=== PATIENT | male | born 1945 | race Caucasian/White ===

== ENCOUNTER 2020-10-04 09:33 | Emergency (ER) | payer OTHER ==
[2020-10-04] MEDS ORDERED: Sodium Chloride 0.9% 10 ML Syringe FLUSH PRN (10:26)
--- NOTE | 2020-10-04 11:22 | EDM.PDOC ---
ED HPI GENERAL MEDICAL PROBLEM - General Chief Complaint: Cardiovascular Problem Stated Complaint: SENT BY [place] HIGH POTASSIUM LEVEL Time Seen by Provider: 10/04/20 10:55 Source of Information: Reports: Patient History Limitations: Reports: No Limitations - History of Present Illness INITIAL COMMENTS - FREE TEXT/NARRATIVE: 75-year-old male presents the emergency department today. Patient had labs drawn yesterday for his oncologist, . [facility] and stated that his [facility] level was high and that he needed to go to the ER immediately. Patient denies any symptoms of hyperkalemia. He denies any chest pain, shortness of breath, palpitations. Denies any recent fever, chills, nausea, vomiting or diarrhea. He denies any cough or sore throat. He denies having any history of hyperkalemia in the past. He states he does have prostate cancer for which he has been taking abiraterone acetate 1000 mg at bedtime for the past 2 years. He states he initially started seeing Dr. Barrera for the prostate cancer however Dr. Barrera notified him that the cancer was too far advanced and he would not be able to have surgery. He was then sent to be seen by Dr. Shukla. Patient is a diabetic for which he takes glipizide and Metformin and also carries a history of hypertension. - Related Data Allergies Allergy/AdvReac Type Severity Reaction Status Date / Time No Known Allergies Allergy Verified 10/04/20 10:52 Home Meds: Home Meds Lisinopril 40 mg PO DAILY 02/12/18 [History] Metoprolol Tartrate 50 mg PO BID 02/12/18 [History] atorvaSTATin Calcium [Atorvastatin Calcium] 40 mg PO BEDTIME 02/12/18 [History] Abiraterone Acetate 1,000 mg PO BEDTIME 10/04/20 [History] Alogliptin Benzoate [Alogliptin] 25 mg PO BEDTIME 10/04/20 [History] Empagliflozin [Jardiance] 25 mg PO DAILY 10/04/20 [History] Methylcellulose [Citrucel] 2,000 mg PO DAILY 10/04/20 [History] Pioglitazone HCl [Actos] 30 mg PO DAILY 10/04/20 [History] Tamsulosin [Flomax] 0.4 mg PO DAILY 10/04/20 [History] amLODIPine Besylate [Norvasc] 5 mg PO DAILY #20 tablet 10/04/20 [Rx] glipiZIDE [Glucotrol] 20 mg PO BID 10/04/20 [History] metFORMIN [Glucophage] 1,000 mg PO DAILY 10/04/20 [History] predniSONE [Prednisone] 2.5 mg PO BID 10/04/20 [History] Past Medical History HEENT History: Reports: Impaired Vision Other HEENT History: wears corrective lenses Cardiovascular History: Reports: High Cholesterol, Hypertension Genitourinary History: Reports: Chronic Renal Insuffiency, Prostate Disorder, Other (See Below) Other Genitourinary History: indwelling catheter Musculoskeletal History: Reports: Back Pain, Chronic, Osteoarthritis Endocrine/Metabolic History: Reports: Diabetes, Type II Social & Family History - Caffeine Use Caffeine Use: Reports: Coffee, Soda, Tea - Living Situation & Occupation Living situation: Reports: Occupation: Employed ED ROS GENERAL - Review of Systems Review Of Systems: Comprehensive ROS is negative, except as noted in HPI. ED EXAM, GENERAL - Physical Exam Exam: See Below Exam Limited By: No Limitations General Appearance: Alert, WD/WN, No Apparent Distress Ears: Normal External Exam, Hearing Grossly Normal Nose: Normal Inspection Throat/Mouth: Normal Inspection, Normal Lips, Normal Voice, No Airway Compromise Head: Atraumatic Neck: Normal Inspection, Supple Respiratory/Chest: No Respiratory Distress, Lungs Clear, Normal Breath Sounds, No Accessory Muscle Use, Chest Non-Tender Cardiovascular: Normal Peripheral Pulses, Regular Rate, Rhythm, No Murmur. No: No Edema (1+ edema to bilateral lower extremities) Peripheral Pulses: 2+: Radial (L), Radial (R) GI/Abdominal: Normal Bowel Sounds, Soft, Non-Tender, No Distention (Male) Exam: Deferred Rectal (Males) Exam: Deferred Back Exam: Normal Inspection Extremities: Normal Inspection, Normal Range of Motion, Non-Tender, Normal Capillary Refill, Pedal Edema (1+ pedal edema to bilateral lower extremities) Neurological: Alert, Oriented, Normal Cognition Psychiatric: Normal Affect, Normal Mood Skin Exam: Warm, Dry, Intact, Normal Color, No Rash Lymphatic: No Adenopathy #1 Interpretation EKG Date: 10/04/20 Time: 10:45 Rhythm: NSR Rate (Beats/Min): 55 [place]: Normal P-Wave: Present QRS: Other (and LBBB) ST-T: Normal QT: Normal EKG Interpretation Comments: Per Dr. Pratt interpretation: Sinus rhythm at 55 bpm; LAD -53 degrees; RBBB B and afeb pattern; left atrial hypertrophy; T wave inversion III & AVF Course - Vital Signs Text/Narrative:: Again patient sent from the [place] with hyperkalemia from lab work that was drawn yesterday. Patient states he has been completely asymptomatic and has not had a history of hyperkalemia in the past. I have ordered labs to include a CBC, CMP, CRP and a magnesium level as well as a troponin. Also ordered an EKG and a portable view of the chest. Last Recorded V/S: Last Vital Signs Temp 97.2 F 10/04/20 10:22 Pulse 60 10/04/20 10:22 Resp 19 10/04/20 10:22 BP 155/67 H 10/04/20 10:22 Pulse Ox 100 10/04/20 10:22 - Orders/Labs/Meds Orders: Active Orders 24 hr Category Date Time Status EKG Documentation Completion [RC] STAT Care 10/04/20 10:25 Active Sodium Chloride 0.9% [Normal Saline] 500 ml Med 10/04/20 11:43 Active IV .BOLUS Sodium Chloride 0.9% [Saline Flush] Med 10/04/20 10:26 Active 10 ml FLUSH ASDIRECTED PRN Saline Lock Insert [OM.PC] Routine Oth 10/04/20 10:26 Ordered Medication Orders Sodium Chloride (Normal Saline) 500 mls @ 500 mls/hr IV .BOLUS ONE Stop: 10/04/20 12:42 Last Admin: 10/04/20 12:28 Dose: 500 mls/hr Documented by: BEVERLY Sodium Chloride (Sodium Chloride 0.9% 10 Ml Syringe) 10 ml FLUSH ASDIRECTED PRN PRN Reason: Keep Vein Open Last Admin: 10/04/20 10:25 Dose: 10 ml Documented by: BEVERLY Labs: Laboratory Tests 10/04/20 10/04/20 10/04/20 Range/Units 10:25 10:25 10:25 WBC 6.84 (4.23-9.07) K/mm3 RBC 3.61 L (4.63-6.08) M/mm3 Hgb 11.7 L (13.7-17.5) gm/dl Hct 37.8 L (40.1-51.0) % MCV 104.7 H D (79.0-92.2) fl MCH 32.4 H (25.7-32.2) pg MCHC 31.0 L (32.2-35.5) g/dl RDW Std Deviation 56.2 H (35.1-43.9) fL Plt Count 104 L (163-337) K/mm3 MPV 13.5 H (9.4-12.3) fl Neutrophils % (Manual) 64 H (40-60) % Band Neutrophils % 5 (0-10) % Lymphocytes % (Manual) 11 L (20-40) % Atypical Lymphs % 7 % Monocytes % (Manual) 11 H (2-10) % Eosinophils % (Manual) 2 (0.8-7.0) % Basophils % (Manual) 0 L (0.2-1.2) Platelet Estimate Decreased Plt Morphology Comment Normal Hypochromasia 1+ slight Anisocytosis 2+ moderate Macrocytosis 2+ moderate RBC Morph Comment Not Reportable Sodium 143 (136-145) mEq/L Potassium 5.3 H (3.5-5.1) mEq/L Chloride 108 H (98-107) mEq/L Carbon Dioxide 27 (21-32) mEq/L Anion Gap 13.3 (5-15) BUN 34 H D (7-18) mg/dL Creatinine 1.7 H D (0.7-1.3) mg/dL Est Cr Clr Drug Dosing 41.84 mL/min Estimated GFR (MDRD) 40 (>60) mL/min BUN/Creatinine Ratio 20.0 H (14-18) Glucose 141 H (70-99) mg/dL Calcium 9.1 (8.5-10.1) mg/dL Magnesium (1.8-2.4) mg/dL Total Bilirubin 0.7 (0.2-1.0) mg/dL AST 19 (15-37) U/L ALT 26 (16-63) U/L Alkaline Phosphatase 64 (46-116) U/L Troponin I 0.003 (0.00-0.056) ng/mL C-Reactive Protein <0.2 (<1.0) mg/dL Total Protein 7.2 (6.4-8.2) g/dl Albumin 3.8 (3.4-5.0) g/dl Globulin 3.4 gm/dL Albumin/Globulin Ratio 1.1 (1-2) 10/04/20 Range/Units 10:36 WBC (4.23-9.07) K/mm3 RBC (4.63-6.08) M/mm3 Hgb (13.7-17.5) gm/dl Hct (40.1-51.0) % MCV (79.0-92.2) fl MCH (25.7-32.2) pg MCHC (32.2-35.5) g/dl RDW Std Deviation (35.1-43.9) fL Plt Count (163-337) K/mm3 MPV (9.4-12.3) fl Neutrophils % (Manual) (40-60) % Band Neutrophils % (0-10) % Lymphocytes % (Manual) (20-40) % Atypical Lymphs % % Monocytes % (Manual) (2-10) % Eosinophils % (Manual) (0.8-7.0) % Basophils % (Manual) (0.2-1.2) Platelet Estimate Plt Morphology Comment Hypochromasia Anisocytosis Macrocytosis RBC Morph Comment Sodium (136-145) mEq/L Potassium (3.5-5.1) mEq/L Chloride (98-107) mEq/L Carbon Dioxide (21-32) mEq/L Anion Gap (5-15) BUN (7-18) mg/dL Creatinine (0.7-1.3) mg/dL Est Cr Clr Drug Dosing mL/min Estimated GFR (MDRD) (>60) mL/min BUN/Creatinine Ratio (14-18) Glucose (70-99) mg/dL Calcium (8.5-10.1) mg/dL Magnesium 2.5 H (1.8-2.4) mg/dL Total Bilirubin (0.2-1.0) mg/dL AST (15-37) U/L ALT (16-63) U/L Alkaline Phosphatase (46-116) U/L Troponin I (0.00-0.056) ng/mL C-Reactive Protein (<1.0) mg/dL Total Protein (6.4-8.2) g/dl Albumin (3.4-5.0) g/dl Globulin gm/dL Albumin/Globulin Ratio (1-2) Meds: Medications Generic Name Dose Route Start Last Admin Trade Name Freq PRN Reason Stop Dose Admin Sodium Chloride 500 mls @ 500 mls/hr 10/04/20 11:43 10/04/20 12:28 Normal Saline IV 10/04/20 12:42 500 mls/hr .BOLUS ONE Administration Sodium Chloride 10 ml 10/04/20 10:26 10/04/20 10:25 Sodium Chloride 0.9% 10 Ml Syringe FLUSH 10 ml ASDIRECTED PRN Administration Keep Vein Open Discontinued Medications Generic Name Dose Route Start Last Admin Trade Name Freq PRN Reason Stop Dose Admin Sodium Polystyrene Sulfonate 15 gm 10/04/20 11:33 10/04/20 12:27 Sodium Polystyrene Sulfonate 15 Gm/60 Ml Susp 60 Ml Bot PO 10/04/20 11:34 15 gm ONETIME ONE Administration - Re-Assessments/Exams Free Text/Narrative Re-Assessment/Exam: 10/04/20 11:42 Hematology reveals a WBC of 6.84, hemoglobin 11.7, hematocrit 37.8, platelet count 104 Chemistry reveals a sodium of 143, potassium 5.3, chloride 108, anion gap 13.3, BUN 34, creatinine 1.7, glucose 141, magnesium 2.5, troponin 0 0.003, C-reactive protein less than 0.02 Discussed the case with Dr. Pratt and he recommends that the patient receive Kaexalate 15gm po x 1 dose. I will also give the patient a 500cc Normal saline bolus. 10/04/20 11:46 Radiologist impression AP upright view of the chest: Heart size is within normal limits for AP portable technique. Slight tortuosity of the thoracic aorta is seen. Nodule is noted within the right lung base most likely due to nipple density. Lungs otherwise are clear with no acute parenchymal change. No acute osseous abnormality is appreciated. 10/04/20 12:48 Likely the cause of the patient's hyperkalemia is the lisinopril that he is taking. He will be instructed to discontinue taking this medication. Dr. Pratt recommends that I start the patient on norvasc 5 mg daily. He will be given the first dose in the ED today. I will send a prescription for this medication to his pharmacy and he has been instructed [facility] The patient verbalized understanding. Departure - Departure Time of Disposition: 12:51 Disposition: Home, Self-Care 01 Condition: Good Clinical Impression: Hyperkalemia Prescriptions: amLODIPine Besylate [Norvasc] 5 mg PO DAILY #20 tablet Instructions: Hyperkalemia, [id number] Referrals: Dora Owens MD [Primary Care Provider] - Forms: ED Department Discharge Additional Instructions: You were seen in the emergency department today after you were sent here by the [place] clinic for high potassium levels. Your potassium level today was 5.3. You were given medication and IV fluids to decrease the potassium level in your blood. The likely culprit for this is the lisinopril that you are taking to control your blood pressure. Discontinue taking this medication. You were given a medication called Shahrzad while in the emergency department. I have sent a prescription for this medication to [place] [facility] in [place]. You can pick this up today and start taking 1 tab daily starting tomorrow. You will need to follow-up with the [place] clinic early next week for reevaluation. Should your condition worsen or change, do not hesitate returning to the emergency department. Sepsis Event Note (ED) - Evaluation Sepsis Screening Result: No Definite Risk - Focused Exam Vital Signs: Vital Signs Temp Pulse Resp BP Pulse Ox 10/04/20 10:22 97.2 F 60 19 155/67 H 100 - My Orders Last 24 Hours: My Active Orders 10/04/20 10:25 EKG Documentation Completion [RC] STAT 10/04/20 10:26 Sodium Chloride 0.9% [Saline Flush] 10 ml FLUSH ASDIRECTED PRN Saline Lock Insert [OM.PC] Routine 10/04/20 11:43 Sodium Chloride 0.9% [Normal Saline] 500 ml IV .BOLUS - Assessment/Plan Last 24 Hours: My Active Orders 10/04/20 10:25 EKG Documentation Completion [RC] STAT 10/04/20 10:26 Sodium Chloride 0.9% [Saline Flush] 10 ml FLUSH ASDIRECTED PRN Saline Lock Insert [OM.PC] Routine 10/04/20 11:43 Sodium Chloride 0.9% [Normal Saline] 500 ml IV .BOLUS
[2020-10-04] MEDS ORDERED: Sodium Polystyrene Sulfonate 15 GM/60 ML Susp 60 ML Bot PO ONE (11:33)
--- NOTE | 2020-10-04 11:36 | CR ---
Chest: AP upright view of the chest was obtained utilizing portable technique. Comparison: No previous study. Heart size is within normal limits for AP portable technique. Slight tortuosity of the thoracic aorta is seen. Nodule is noted within the right lung base most likely due to nipple density. Lungs otherwise are clear with no acute parenchymal change. No acute osseous abnormality is appreciated. Impression: 1. Findings as noted above. 2. Nothing acute is seen. Diagnostic code #2
[2020-10-04] MEDS ORDERED: Sodium Chloride 0.9% 500 ML IV ONE (11:43)
[2020-10-04] MEDS ORDERED: amLODIPine 5 MG Tab PO ONE (12:50)
== END 2020-10-04 13:12 | disposition home or self-care (01) ==
LOC: JD.ED 09:33
DX: E87.5 Hyperkalemia (principal); E78.00 Pure hypercholesterolemia, unspecified; I10 Essential (primary) hypertension; E11.9 Type 2 diabetes mellitus without complications; Z79.899 Other long term (current) drug therapy; Z79.84 Long term (current) use of oral hypoglycemic drugs
CPT/HCPCS: 36415; 71045; 80053; 83735; 84484; 85007; 85027; 86140; 93005; 99285; A9270; J7030; 93010; 99284

== ENCOUNTER 2021-10-25 18:22 | Emergency (ER) | payer OTHER ==
[2021-10-25] MEDS ORDERED: Sodium Chloride 0.9% 10 ML Syringe FLUSH PRN (20:50)
[2021-10-25] MEDS ORDERED: Sodium Chloride 0.9% 500 ML IV ONE (20:51)
[2021-10-25 20:56] LABS: CORONAVIRUS COVID-19 NAA POSITIVE (NEGATIVE)
[2021-10-25] MEDS ORDERED: cefTRIAXone 1 GM in Sodium Chloride 0.9% 100 ML IV ONE (22:28)
[2021-10-25] MEDS ORDERED: Potassium Chloride 20 MEQ Tab.ER PO ONE (22:36)
== END 2021-10-26 00:32 | disposition home or self-care (01) ==
LOC: JD.ED 18:22
DX: U07.1 COVID-19 (principal); J18.9 Pneumonia, unspecified organism; E78.00 Pure hypercholesterolemia, unspecified; I10 Essential (primary) hypertension; E11.9 Type 2 diabetes mellitus without complications; Z79.899 Other long term (current) drug therapy; Z79.84 Long term (current) use of oral hypoglycemic drugs; Z87.891 Personal history of nicotine dependence
CPT/HCPCS: 0241U; 36415; 71045; 71250; 80053; 81001; 83605; 83735; 85025; 86140; 87040; 93005; 96361; 96365; 99285; A9270; J0696; J3490; J7030

== ENCOUNTER 2021-11-01 16:25 | Emergency (ER) | payer OTHER ==
[2021-11-01] MEDS ORDERED: Sodium Chloride 0.9% 10 ML Syringe FLUSH PRN (17:01)
[2021-11-01] MEDS ORDERED: Sodium Chloride 0.9% 1,000 ML IV ONE (18:09)
[2021-11-01 18:13] LABS: ESTIMATED GFR 30 mL/min (>60)
== END 2021-11-01 20:15 | disposition home or self-care (01) ==
LOC: JD.ED 16:25
DX: I95.89 Other hypotension (principal); E86.0 Dehydration; E78.00 Pure hypercholesterolemia, unspecified; I12.9 Hypertensive chronic kidney disease with stage 1 through stage 4 chronic kidney disease, or unspecified chronic kidney disease; E11.22 Type 2 diabetes mellitus with diabetic chronic kidney disease; N18.9 Chronic kidney disease, unspecified; Z86.16 Personal history of COVID-19; Z79.899 Other long term (current) drug therapy
CPT/HCPCS: 36415; 71046; 80053; 81001; 83605; 83735; 85025; 86140; 87040; 96360; 99285; J3490; J7030; 99284

== ENCOUNTER 2022-06-04 06:41 | Day surgery (SDC) | payer OTHER ==
[2022-06-04] MEDS ORDERED: Propofol 200 MG/20 ML SDV ONE ×4 (06:56→15:46)
[2022-06-04] MEDS ORDERED: Lidocaine 1% 5 ML VIAL ONE ×3 (07:02→14:41)
[2022-06-04] MEDS ORDERED: fentaNYL 100 MCG/2 ML SDV ONE ×2 (07:07→14:40)
[2022-06-04] MEDS ORDERED: Sodium Chloride 0.9% 10 ML Syringe FLUSH PRN (07:22)
[2022-06-04] MEDS ORDERED: Lidocaine 1%/Sod Bicarbonate in NS 8.4% 1 ML Syringe IDERM PRN (07:22)
[2022-06-04] MEDS ORDERED: Lactated Ringers 1,000 ML IV SCH (07:30)
[2022-06-04] MEDS ORDERED: Sodium Chloride 0.9% 50 ML SDV ONE ×2 (07:37→15:03)
[2022-06-04] MEDS: Bupivacaine 0.5%/EPINEPHrine 1:200,000 50 ML MDV ONE ×3 (08:30→15:30)
[2022-06-04] MEDS ORDERED: Sodium Chloride 0.9% 10 ML Syringe FLUSH SCH (09:00)
[2022-06-04] MEDS ORDERED: Bupivacaine 0.5%/EPINEPHrine 1:200,000 50 ML MDV ONE (14:36)
[2022-06-04] MEDS ORDERED: Bacitracin Oint 15 GM Tube ONE (15:12)
[2022-06-04] MEDS ORDERED: Phenylephrine HCl In 0.9% NaCl 1 MG/10 ML Vial ONE (15:26)
== END 2022-06-04 17:13 | disposition home or self-care (01) ==
LOC: JD.SDS 06:41
PROVIDERS: ATTEND Surgery
DX: C61 Malignant neoplasm of prostate (principal); I25.10 Atherosclerotic heart disease of native coronary artery without angina pectoris; E11.9 Type 2 diabetes mellitus without complications; E78.5 Hyperlipidemia, unspecified; D50.9 Iron deficiency anemia, unspecified; Z98.890 Other specified postprocedural states; Z79.899 Other long term (current) drug therapy; Z91.048 Other nonmedicinal substance allergy status; Z87.891 Personal history of nicotine dependence
CPT/HCPCS: 36561; 71045; 71250; 76000; A9270; C1788; J1642; J2704; J3010; J3490; J7120; 00400; 00532

== ENCOUNTER 2022-11-13 13:09 | Emergency (ER) | payer OTHER ==
[2022-11-13] MEDS ORDERED: Acetaminophen/HYDROcodone 325-5 MG Tab PO ONE (14:03)
[2022-11-13 14:17] LABS: BASOPHILS ABSOLUTE AUTO 0.02 K/mm3 (0.01-0.08); BASOPHILS PERCENT AUTO 0.2 % (0.1-1.2); EOSINOPHILS ABSOLUTE AUTO 0.02 K/mm3 (0.04-0.54); EOSINOPHILS PERCENT AUTO 0.2 (0.8-7.0); HEMATOCRIT 35.8 % (40.1-51.0); IMMATURE GRAN ABSOLUTE AUTO 0.03 K/mm3 (0.00-0.10); IMMATURE GRAN PERCENT AUTO 0.3 % (<=1.0); LYMPHOCYTES ABSOLUTE AUTO 1.18 K/mm3 (1.32-3.57); LYMPHOCYTES PERCENT AUTO 13.2 % (21.8-53.1); MEAN CORPUSCULAR HEMOGLOBIN 31.8 pg (25.7-32.2); MEAN CORPUSCULAR HGB CONC 30.7 g/dl (32.2-35.5); MEAN CORPUSCULAR VOLUME 103.5 fl (79.0-92.2); MONOCYTES ABSOLUTE AUTO 0.65 K/mm3 (0.30-0.82); MONOCYTES PERCENT AUTO 7.3 % (5.3-12.2); NEUTROPHILS ABSOLUTE AUTO 7.02 K/mm3 (1.78-5.38); NEUTROPHILS PERCENT AUTO 78.8 % (34.0-67.9); PLATELET COUNT,PLT 123 K/mm3 (163-337); RED BLOOD CELL COUNT 3.46 M/mm3 (4.63-6.08); WHITE BLOOD CELL COUNT,WBC 8.92 K/mm3 (4.23-9.07)
[2022-11-13 14:39] LABS: A/G RATIO 0.9 (1-2); ALBUMIN 3.2 g/dl (3.4-5.0); ANION GAP 15.3 (5-15); BILIRUBIN TOTAL 0.6 mg/dL (0.2-1.0); BUN/CREATININE RATIO 16.9 (14-18); CALCIUM 8.5 mg/dL (8.5-10.1); CREATININE 1.6 mg/dL (0.7-1.3); EST CRCL DRUG DOSING (CG) 43.11 mL/min; POTASSIUM,K 4.3 mEq/L (3.5-5.1); PROTEIN TOTAL,TP 6.6 g/dl (6.4-8.2)
[2022-11-13 15:05] LABS: HEMOGLOBIN A1C 6.8 %
[2022-11-13] MEDS ORDERED: Amoxicillin/Clavulanate K 875-125 MG Tab PO ONE (17:26)
[2022-11-13] MEDS ORDERED: Doxycycline Monohydrate 100 MG Cap PO ONE (17:26)
== END 2022-11-13 18:30 | disposition home or self-care (01) ==
LOC: JD.ED 13:09
DX: L03.115 Cellulitis of right lower limb (principal); I12.9 Hypertensive chronic kidney disease with stage 1 through stage 4 chronic kidney disease, or unspecified chronic kidney disease; E11.22 Type 2 diabetes mellitus with diabetic chronic kidney disease; N18.9 Chronic kidney disease, unspecified; E78.00 Pure hypercholesterolemia, unspecified; Z79.84 Long term (current) use of oral hypoglycemic drugs; Z79.82 Long term (current) use of aspirin; Z79.899 Other long term (current) drug therapy; Z86.16 Personal history of COVID-19
CPT/HCPCS: 36415; 73718; 73721; 80053; 83036; 85025; 99284; A9270; 99283

== ENCOUNTER 2023-01-06 18:48 | Emergency (ER) | payer OTHER | END 2023-01-06 21:30 | disposition home or self-care (01) | LOC: JD.ED 18:48 | DX: E11.621 Type 2 diabetes mellitus with foot ulcer (principal); L89.619 Pressure ulcer of right heel, unspecified stage; E11.52 Type 2 diabetes mellitus with diabetic peripheral angiopathy with gangrene; I96 Gangrene, not elsewhere classified; Z86.16 Personal history of COVID-19; I10 Essential (primary) hypertension; E78.00 Pure hypercholesterolemia, unspecified; Z79.84 Long term (current) use of oral hypoglycemic drugs; Z79.899 Other long term (current) drug therapy; Z87.891 Personal history of nicotine dependence | CPT/HCPCS: 99283 ==

== ENCOUNTER 2023-04-22 14:04 | Emergency (ER) | payer OTHER ==
[2023-04-22] MEDS ORDERED: Lidocaine 2% 11 ML Jelly Filled Syringe MUCMEM ONE (14:56)
[2023-04-22 15:20] LABS: BASOPHILS PERCENT AUTO 0.8 % (0.0-1.0); EOSINOPHILS PERCENT AUTO 0.2 % (0.0-6.0); HEMATOCRIT 26.5 % (42.0-52.0); HEMOGLOBIN 7.9 gm/dl (14.0-18.0); IMMATURE GRAN ABSOLUTE AUTO 0.22 K/mm3 (0.00-0.05); IMMATURE GRAN PERCENT AUTO 4.5 % (0.0-0.4); LYMPHOCYTES ABSOLUTE AUTO 1.4 K/mm3 (1.0-4.8); LYMPHOCYTES PERCENT AUTO 28.5 % (24.0-44.0); MEAN CORPUSCULAR HEMOGLOBIN 28.5 pg (28.0-32.0); MEAN CORPUSCULAR HGB CONC 29.8 g/dl (32.0-36.0); MEAN CORPUSCULAR VOLUME 95.7 fl (83.0-99.0); MONOCYTES ABSOLUTE AUTO 0.9 K/mm3 (0.0-0.8); MONOCYTES PERCENT AUTO 18.3 % (0.0-8.0); NEUTROPHILS ABSOLUTE AUTO 2.4 K/mm3 (1.8-7.7); NEUTROPHILS PERCENT AUTO 47.7 % (41.0-71.0); PLATELET COUNT,PLT 196 K/mm3 (150-400); RED BLOOD CELL COUNT 2.77 M/mm3 (4.52-5.90); WHITE BLOOD CELL COUNT,WBC 4.92 K/mm3 (3.9-11.3)
[2023-04-22 15:45] LABS: A/G RATIO 0.9 (1-2); ALBUMIN 2.8 g/dl (3.4-5.0); ANION GAP 14.9 (5-15); BILIRUBIN TOTAL 0.3 mg/dL (0.2-1.0); BUN/CREATININE RATIO 19.2 (14-18); CALCIUM 8.7 mg/dL (8.5-10.1); CREATININE 1.3 mg/dL (0.7-1.3); EST CRCL DRUG DOSING (CG) 53.06 mL/min; POTASSIUM,K 4.9 mEq/L (3.5-5.1); PROTEIN TOTAL,TP 6.1 g/dl (6.4-8.2)
[2023-04-22 16:05] LABS: APPEARANCE,URINE SLT CLOUDY (Clear); BILIRUBIN,URINE NEGATIVE (Negative); COLOR,URINE DARK YELLOW (Yellow); GLUCOSE,URINE 3+ (Negative); KETONES,URINE NEGATIVE (Negative); LEUKOCYTE ESTERASE,URINE TRACE (Negative); NITRITE,URINE NEGATIVE (Negative); OCCULT BLOOD,URINE 3+ (Negative); PROTEIN,URINE 2+ (Negative); UROBILINOGEN,URINE 0.2 (0.2-1.0)
[2023-04-22 16:30] LABS: BACTERIA,URINE FEW /hpf (FEW); MUCUS,URINE NOT SEEN /hpf (FEW); RBC,URINE >100 /hpf (0-5); SQUAMOUS EPITHELIAL CELLS,UR 0-5 /hpf (0-5); WBC CLUMPS,URINE MODERATE /hpf (NOT SEEN); WBC,URINE 75-100 /hpf (0-5)
[2023-04-22] MEDS ORDERED: Sulfamethoxazole/Trimethoprim 800-160 MG Tab PO ONE (16:58)
== END 2023-04-22 17:30 | disposition home or self-care (01) ==
LOC: JD.ED 14:04
DX: R33.9 Retention of urine, unspecified (principal); N39.0 Urinary tract infection, site not specified; I10 Essential (primary) hypertension; M19.90 Unspecified osteoarthritis, unspecified site; E78.00 Pure hypercholesterolemia, unspecified; E11.9 Type 2 diabetes mellitus without complications; Z79.82 Long term (current) use of aspirin; Z79.899 Other long term (current) drug therapy; Z86.16 Personal history of COVID-19; Z87.891 Personal history of nicotine dependence
CPT/HCPCS: 36415; 51702; 80053; 81001; 85025; 99283; A9270-GY

== ENCOUNTER 2023-04-23 16:34 | Emergency (ER) | payer OTHER | END 2023-04-23 17:25 | LOC: JD.ED 16:34 | DX: Z53.21 Procedure and treatment not carried out due to patient leaving prior to being seen by health care provider (principal) ==

== ENCOUNTER 2023-04-25 10:45 | Emergency (ER) | payer OTHER ==
[2023-04-25 11:35] LABS: BASOPHILS ABSOLUTE AUTO 0.1 K/mm3 (0.0-0.2); BASOPHILS PERCENT AUTO 0.5 % (0.0-1.0); HEMATOCRIT 26.7 % (42.0-52.0); HEMOGLOBIN 8.2 gm/dl (14.0-18.0); IMMATURE GRAN ABSOLUTE AUTO 0.17 K/mm3 (0.00-0.05); IMMATURE GRAN PERCENT AUTO 1.7 % (0.0-0.4); LYMPHOCYTES ABSOLUTE AUTO 1.6 K/mm3 (1.0-4.8); LYMPHOCYTES PERCENT AUTO 16.4 % (24.0-44.0); MEAN CORPUSCULAR HEMOGLOBIN 29.3 pg (28.0-32.0); MEAN CORPUSCULAR HGB CONC 30.7 g/dl (32.0-36.0); MEAN CORPUSCULAR VOLUME 95.4 fl (83.0-99.0); MEAN PLATELET VOLUME 11.7 fl (9.4-12.4); MONOCYTES PERCENT AUTO 9.6 % (0.0-8.0); NEUTROPHILS ABSOLUTE AUTO 7.1 K/mm3 (1.8-7.7); NEUTROPHILS PERCENT AUTO 71.8 % (41.0-71.0); PLATELET COUNT,PLT 176 K/mm3 (150-400); WHITE BLOOD CELL COUNT,WBC 9.92 K/mm3 (3.9-11.3)
[2023-04-25 12:04] LABS: ANION GAP 12.7 (5-15); BILIRUBIN TOTAL 0.3 mg/dL (0.2-1.0); BUN/CREATININE RATIO 15.6 (14-18); CALCIUM 8.4 mg/dL (8.5-10.1); CREATININE 1.8 mg/dL (0.7-1.3); EST CRCL DRUG DOSING (CG) 38.32 mL/min; POTASSIUM,K 4.7 mEq/L (3.5-5.1); PROTEIN TOTAL,TP 6.1 g/dl (6.4-8.2)
== END 2023-04-25 12:30 | disposition home or self-care (01) ==
LOC: JD.ED 10:45
DX: T83.098A Other mechanical complication of other urinary catheter, initial encounter (principal); E78.00 Pure hypercholesterolemia, unspecified; I12.9 Hypertensive chronic kidney disease with stage 1 through stage 4 chronic kidney disease, or unspecified chronic kidney disease; N18.9 Chronic kidney disease, unspecified; M19.90 Unspecified osteoarthritis, unspecified site; E11.22 Type 2 diabetes mellitus with diabetic chronic kidney disease; Z86.16 Personal history of COVID-19; Z79.82 Long term (current) use of aspirin; Z79.84 Long term (current) use of oral hypoglycemic drugs; Z79.899 Other long term (current) drug therapy
CPT/HCPCS: 36415; 80053; 85025; 99283

== ENCOUNTER 2023-04-26 15:55 | Emergency (ER) | payer OTHER | END 2023-04-26 18:16 | disposition home or self-care (01) | LOC: JD.ED 15:55 | DX: T83.091A Other mechanical complication of indwelling urethral catheter, initial encounter (principal); R31.0 Gross hematuria; I12.9 Hypertensive chronic kidney disease with stage 1 through stage 4 chronic kidney disease, or unspecified chronic kidney disease; N18.9 Chronic kidney disease, unspecified; M19.90 Unspecified osteoarthritis, unspecified site; E78.00 Pure hypercholesterolemia, unspecified; E11.22 Type 2 diabetes mellitus with diabetic chronic kidney disease; Z79.84 Long term (current) use of oral hypoglycemic drugs; Z79.82 Long term (current) use of aspirin; Z79.899 Other long term (current) drug therapy; Z86.16 Personal history of COVID-19 | CPT/HCPCS: 51700; 99283 ==

== ENCOUNTER 2023-04-29 03:48 | Emergency (ER) | payer OTHER ==
[2023-04-29 05:20] LABS: BUN/CREATININE RATIO 19.3 (14-18); CALCIUM 8.4 mg/dL (8.5-10.1); CREATININE 1.5 mg/dL (0.7-1.3); EST CRCL DRUG DOSING (CG) 45.99 mL/min
[2023-04-29 05:26] LABS: BASOPHILS ABSOLUTE AUTO 0.1 K/mm3 (0.0-0.2); BASOPHILS PERCENT AUTO 0.6 % (0.0-1.0); EOSINOPHILS PERCENT AUTO 0.1 % (0.0-6.0); HEMATOCRIT 25.2 % (42.0-52.0); HEMOGLOBIN 7.6 gm/dl (14.0-18.0); IMMATURE GRAN PERCENT AUTO 1.2 % (0.0-0.4); MEAN CORPUSCULAR HEMOGLOBIN 29.7 pg (28.0-32.0); MEAN CORPUSCULAR HGB CONC 30.2 g/dl (32.0-36.0); MEAN CORPUSCULAR VOLUME 98.4 fl (83.0-99.0); MEAN PLATELET VOLUME 12.2 fl (9.4-12.4); MONOCYTES ABSOLUTE AUTO 0.7 K/mm3 (0.0-0.8); MONOCYTES PERCENT AUTO 7.7 % (0.0-8.0); NEUTROPHILS ABSOLUTE AUTO 5.8 K/mm3 (1.8-7.7); NEUTROPHILS PERCENT AUTO 67.4 % (41.0-71.0); PLATELET COUNT,PLT 149 K/mm3 (150-400); RED BLOOD CELL COUNT 2.56 M/mm3 (4.52-5.90); WHITE BLOOD CELL COUNT,WBC 8.54 K/mm3 (3.9-11.3)
[2023-04-29] MEDS ORDERED: Sodium Chloride 0.9% 10 ML Syringe FLUSH PRN (05:31)
[2023-04-29] MEDS ORDERED: Sodium Chloride 0.9% 250 ML IV SCH (06:00)
[2023-04-29 11:18] LABS: HEMATOCRIT 26.6 % (42.0-52.0); HEMOGLOBIN 8.3 gm/dl (14.0-18.0)
== END 2023-04-29 12:12 | disposition home or self-care (01) ==
LOC: JD.ED 03:48
DX: T83.091A Other mechanical complication of indwelling urethral catheter, initial encounter (principal); R33.9 Retention of urine, unspecified; R31.9 Hematuria, unspecified; E78.00 Pure hypercholesterolemia, unspecified; I10 Essential (primary) hypertension; M19.90 Unspecified osteoarthritis, unspecified site; E11.9 Type 2 diabetes mellitus without complications; Z86.16 Personal history of COVID-19; Z79.82 Long term (current) use of aspirin
CPT/HCPCS: 36415; 36430; 51700; 80048; 85014; 85018; 85025; 86850; 86900; 86901; 86922; 99283; J3490; J7050; P9016

== ENCOUNTER 2023-08-14 10:15 | Emergency (ER) | payer OTHER ==
[2023-08-14 11:06] LABS: BASOPHILS PERCENT AUTO 0.4 % (0.0-1.0); EOSINOPHILS ABSOLUTE AUTO 0.1 K/mm3 (0.0-0.4); EOSINOPHILS PERCENT AUTO 1.7 % (0.0-6.0); HEMATOCRIT 33.5 % (42.0-52.0); IMMATURE GRAN ABSOLUTE AUTO 0.04 K/mm3 (0.00-0.05); IMMATURE GRAN PERCENT AUTO 0.5 % (0.0-0.4); LYMPHOCYTES ABSOLUTE AUTO 1.4 K/mm3 (1.0-4.8); LYMPHOCYTES PERCENT AUTO 17.6 % (24.0-44.0); MEAN CORPUSCULAR HEMOGLOBIN 29.1 pg (28.0-32.0); MEAN CORPUSCULAR HGB CONC 30.7 g/dl (32.0-36.0); MEAN PLATELET VOLUME 12.1 fl (9.4-12.4); MONOCYTES ABSOLUTE AUTO 0.6 K/mm3 (0.0-0.8); MONOCYTES PERCENT AUTO 7.2 % (0.0-8.0); NEUTROPHILS ABSOLUTE AUTO 5.7 K/mm3 (1.8-7.7); NEUTROPHILS PERCENT AUTO 72.6 % (41.0-71.0); PLATELET COUNT,PLT 177 K/mm3 (150-400); RED BLOOD CELL COUNT 3.54 M/mm3 (4.52-5.90); WHITE BLOOD CELL COUNT,WBC 7.78 K/mm3 (3.9-11.3)
[2023-08-14 11:10] LABS: HEMOGLOBIN 10.3 gm/dl (14.0-18.0)
[2023-08-14 11:11] LABS: MEAN CORPUSCULAR VOLUME 94.6 fl (83.0-99.0)
[2023-08-14 11:27] LABS: A/G RATIO 0.9 (1-2); ALBUMIN 3.2 g/dl (3.4-5.0); ANION GAP 15.1 (5-15); BILIRUBIN TOTAL 0.4 mg/dL (0.2-1.0); BUN/CREATININE RATIO 19.1 (14-18); C-REACTIVE PROTEIN 0.47 mg/dL (<0.30); CALCIUM 8.6 mg/dL (8.5-10.1); CREATININE 1.1 mg/dL (0.7-1.3); EST CRCL DRUG DOSING (CG) 59.9 mL/min; POTASSIUM,K 4.1 mEq/L (3.5-5.1); PROTEIN TOTAL,TP 6.9 g/dl (6.4-8.2)
[2023-08-14] MEDS: Cephalexin 500 MG Cap PO ONE (14:02)
[2023-08-14] MEDS: Doxycycline Monohydrate 100 MG Cap PO ONE (14:02)
== END 2023-08-14 14:10 | disposition home or self-care (01) ==
LOC: JD.ED 10:15
DX: L08.9 Local infection of the skin and subcutaneous tissue, unspecified (principal); E78.00 Pure hypercholesterolemia, unspecified; I10 Essential (primary) hypertension; Z86.16 Personal history of COVID-19; Z79.82 Long term (current) use of aspirin; Z79.899 Other long term (current) drug therapy
CPT/HCPCS: 36415; 73630; 80053; 85025; 85652; 86140; 87040; 99284; A9270

== ENCOUNTER 2024-05-17 10:18 | Emergency (ER) | payer OTHER ==
[2024-05-17 11:45] LABS: BASOPHILS PERCENT AUTO 0.4 % (0.0-1.0); EOSINOPHILS PERCENT AUTO 0.3 % (0.0-6.0); HEMATOCRIT 22.8 % (42.0-52.0); IMMATURE GRAN ABSOLUTE AUTO 0.07 K/mm3 (0.00-0.05); IMMATURE GRAN PERCENT AUTO 0.9 % (0.0-0.4); LYMPHOCYTES ABSOLUTE AUTO 0.9 K/mm3 (1.0-4.8); LYMPHOCYTES PERCENT AUTO 11.5 % (24.0-44.0); MEAN CORPUSCULAR HEMOGLOBIN 28.5 pg (28.0-32.0); MEAN CORPUSCULAR HGB CONC 31.6 g/dl (32.0-36.0); MEAN CORPUSCULAR VOLUME 90.1 fl (83.0-99.0); MEAN PLATELET VOLUME 10.6 fl (9.4-12.4); MONOCYTES ABSOLUTE AUTO 0.8 K/mm3 (0.0-0.8); MONOCYTES PERCENT AUTO 10.6 % (0.0-8.0); NEUTROPHILS ABSOLUTE AUTO 5.9 K/mm3 (1.8-7.7); NEUTROPHILS PERCENT AUTO 76.3 % (41.0-71.0); PLATELET COUNT,PLT 167 K/mm3 (150-400); RED BLOOD CELL COUNT 2.53 M/mm3 (4.52-5.90); WHITE BLOOD CELL COUNT,WBC 7.72 K/mm3 (3.9-11.3)
[2024-05-17 11:55] LABS: HEMOGLOBIN 7.2 gm/dl (14.0-18.0)
[2024-05-17 12:05] LABS: A/G RATIO 0.3 (1-2); ALBUMIN 1.5 g/dl (3.4-5.0); ANION GAP 15.7 (5-15); BILIRUBIN TOTAL 0.5 mg/dL (0.2-1.0); BUN/CREATININE RATIO 11.5 (14-18); EST CRCL DRUG DOSING (CG) 16.98 mL/min; POTASSIUM,K 3.7 mEq/L (3.5-5.1); PROTEIN TOTAL,TP 6.6 g/dl (6.4-8.2)
[2024-05-17 12:17] LABS: CALCIUM 6.5 mg/dL (8.5-10.1)
[2024-05-17 13:53] LABS: APPEARANCE,URINE CLOUDY (Clear); BILIRUBIN,URINE 1+ (Negative); COLOR,URINE AMBER (Yellow); GLUCOSE,URINE NEGATIVE (Negative); KETONES,URINE TRACE (Negative); LEUKOCYTE ESTERASE,URINE NEGATIVE (Negative); NITRITE,URINE NEGATIVE (Negative); OCCULT BLOOD,URINE 3+ (Negative); PH,URINE 5.5 (5.0-8.0); PROTEIN,URINE 3+ (Negative); UROBILINOGEN,URINE 0.2 (0.2-1.0)
[2024-05-17 13:58] LABS: BACTERIA,URINE FEW /hpf (FEW); MUCUS,URINE FEW /hpf (FEW); RBC,URINE >100 /hpf (0-5); SQUAMOUS EPITHELIAL CELLS,UR 0-5 /hpf (0-5); WBC,URINE 0-5 /hpf (0-5)
[2024-05-17] MEDS: Sodium Chloride 0.9% 250 ML IV SCH (14:45)
== END 2024-05-17 20:25 ==
LOC: JD.ED 10:18
DX: N13.2 Hydronephrosis with renal and ureteral calculous obstruction (principal); I12.9 Hypertensive chronic kidney disease with stage 1 through stage 4 chronic kidney disease, or unspecified chronic kidney disease; N18.9 Chronic kidney disease, unspecified; I25.10 Atherosclerotic heart disease of native coronary artery without angina pectoris; E11.22 Type 2 diabetes mellitus with diabetic chronic kidney disease; Z95.5 Presence of coronary angioplasty implant and graft; Z86.16 Personal history of COVID-19; Z87.891 Personal history of nicotine dependence; Z79.4 Long term (current) use of insulin; Z79.899 Other long term (current) drug therapy; Z88.6 Allergy status to analgesic agent; Z88.5 Allergy status to narcotic agent
CPT/HCPCS: 36415; 36430; 76770; 80053; 81001; 85025; 86850; 86900; 86901; 86922; 87428; 93005; 99285; P9016